=== PATIENT | female | born 1955 | race Caucasian/White ===

== ENCOUNTER → 2019-05-20 | Outpatient (CLI) | payer OTHER ==
--- NOTE | 2019-05-20 17:24 | CARDNUC ---
[place] [address] CARDIAC NUCLEAR IMAGING REPORT Name: ALPESH KO Room: [facility]#: [id number] Admission: 05/20/19 Attend Phys: Ana Palmer, Discharge: Date of : 57 Date of Service: 05/20/19 1723 Report #: [id number] THIS REPORT FOR: cc: Kristy Medina MD, Lin W. MD Liston, Michael J. MD [facility] ~ APPROVED REPORT Study performed: 05/20/2019 14:26:52 Exam: Nuclear Stress Test Indication: Chest pain, Dyspnea. Patient Location: Out-Patient Stress Tech: Flavia Dominguez Stress Nurse: Riley Carlisle Tech:DREW Walls Ht: 5 ft 4 in Wt: 110 lbs BSA: 1.52 m2 BMI: 18.87 Medical History Medical History: Angina, Carotid artery disease, Fatigue, HTN, Hyperlipidemia, Smoking, SOB, Nausea, Diaphoresis, Neuropathy, foot pain. Medications: ASA 81 Mg, Atorvastatin, Losartan. Allergies: No known drug allergies Cardiac Risk Factors: Age, Current Smoker (2 pkg./day), HTN, Hyperlipidemia, SOB. Previous Cardiac Procedures: None Pretest Chest Pain Characteristics: No chest pain Exercise History: Indeterminate Physical Disabilities: Neuropathy, foot pain. Meds Held (24 hrs): Losartan. Stress Test Details Stress Test: Pharmacologic stress testing performed using 0.4 mg of regadenoson per 5 mL given IV over 10 seconds. Reason for pharmacologic stress test: Neuropathy, foot pain.. HR Resting HR: 96 bpm Max Heart Rate (APMHR): 158 bpm Max HR Achieved: 136 bpm Target HR (85% APMHR): 134 bpm % of APMHR: 86 Recovery HR: 106 [place] [address] CARDIAC NUCLEAR IMAGING REPORT Name: ALPESH KO Room: [facility]#: [id number] Admission: 05/20/19 Attend Phys: Ana Palmer, Discharge: Date of : 57 Date of Service: 05/20/19 1723 Report #: [id number] Resting BP: 168/96 mmHg Max BP: 210/111 mmHg ECG Resting ECG: Sinus Rhythm, LVH with repolarization changes Stress ECG: Sinus tachycardia, LVH with repolarization changes ST Change: None Arrhythmia: None Recovery ECG: Sinus Rhythm, LVH with repolarization changes Recovery ST Change: None Recovery Arrhythmia: None Clinical Reason for Termination: Completed protocol Stress Symptoms: Nausea, Emesis, Flushed/warmth, Chest spasm per patient, Headache. Exercise duration: 00 min 00 sec Exercise capacity: 1.00 METs The patient had symptoms of nausea, vomiting, headache and diaphoresis felt to be due to medication affect. Nurse Comments A 63 year old female presented for a sitting Lexiscan r/t chest pain and CAZARES with occasional nausea. Test tolerated with N/V, headache, flushed/warmth, diaphoresis and a headache. Recovery required a dose of IV caffeine to help resolve symptoms, effective. Patient was escorted by staff to Nuclear Medicine for imaging via wheelchair. Patient was stable and stated she felt better at that time. Stress ECG Conclusion The baseline EKG shows sinus rhythm with left ventricular hypertrophy with repolarization abnormalities. EKGs obtained during and post walking Lexiscan show sinus rhythm and sinus tachycardia with persistent ST segment depression consistent with repolarization abnormality. There were no stress-induced arrhythmias. NM EXAM: Myocardial Perfusion REST/STRESS Imaging Protocol: Rest Tc-99m/Stress Tc-99m 1 day Resting Data Rest SPECT myocardial perfusion imaging was [place] [address] CARDIAC NUCLEAR IMAGING REPORT Name: ALPESH KO Room: [facility]#: [id number] Admission: 05/20/19 Attend Phys: Ana Palmer, Discharge: Date of : 57 Date of Service: 05/20/19 1723 Report #: [id number] position 30 minutes following the intravenous injection of 10.6 mCi of Tc-99m Sestamibi. Time of rest injection: 13:00 Date: 05/20/2019 The images were gated to evaluate regional wall motion and calculate left ventricular ejection fraction. Administration Route: IV Administration Site: Right Arm Pharmacologic Stress Pharmacologic stress test was performed by injecting Regadenoson 0.4 mg IV push followed by the intravenous injection of 34.1 mCi of Tc-99m Sestamibi. Time of stress injection: 14:30 Date: 05/20/2019 Administration Route: IV Administration Site: Right Arm Heart Rate at time of stress injection: 136 bpm. Gated Stress SPECT was performed 40 minutes after stress injection. The images were gated to evaluate regional wall motion and calculate left ventricular ejection fraction. Prone imaging was performed. Study Quality Study: Good Artifact: No artifact Study Data At rest, the left ventricular ejection fraction was 71%.. Post stress, the left ventricular ejection was 68%.. TID = 0.92. Perfusion Myocardial perfusion images show uniform uptake of the radioisotope throughout the myocardium at both rest and stress there were no defects to suggest infarct or ischemia. Wall Motion Normal left ventricular wall motion. Nuclear Conclusion ECG Findings: non-diagnostic Clinical Findings: non-diagnostic Nuclear Findings: negative for ischemia Exercise Capacity: not assessed Left Ventricular Function: normal Risk Study: [place] [address] CARDIAC NUCLEAR IMAGING REPORT Name: STEFANIALPESH Room: [facility]#: [id number] Admission: 05/20/19 Attend Phys: Ana Palmer, Discharge: Date of : 57 Date of Service: 05/20/19 1723 Report #: [id number] Perfusion images show no defect to suggest infarct or ischemia. Left ventricular systolic function appears normal on gated studies. This is a low risk study. <Conclusion> The baseline EKG shows sinus rhythm with left ventricular hypertrophy with repolarization abnormalities. EKGs obtained during and post walking Lexiscan show sinus rhythm and sinus tachycardia with persistent ST segment depression consistent with repolarization abnormality. There were no stress-induced arrhythmias. <ELECTRONICALLY SIGNED> By: Pedro Gray MD, FACC 05/20/19 [phone] Pedro Gray MD, FACC /INF
== END ==
LOC: M.NUC 05-01 08:27
DX: R07.89 Other chest pain (principal)

== ENCOUNTER 2019-09-26 16:10 | Emergency (ER) | payer OTHER | END 2019-09-26 19:56 | disposition left against medical advice (07) | LOC: M.ERS 16:10 | DX: J44.1 Chronic obstructive pulmonary disease with (acute) exacerbation (principal); R91.8 Other nonspecific abnormal finding of lung field; F17.210 Nicotine dependence, cigarettes, uncomplicated; Z20.828 Contact with and (suspected) exposure to other viral communicable diseases ==

== ENCOUNTER 2019-09-28 14:15 | Inpatient (IN) | payer OTHER ==
[~2019-09-28] VITALS: Ht 162.6 cm; Wt 51.9 kg
[~2019-09-28 14:15] MED LIST: ASA81BEC PO; AUGMENTIN 875-1 EACH PO; COZAAR 25 MG TA25 M1 PO; DRIZALMA SPRINK60 MG PO; FAMOTIDINE 40 M40 M1 PO; LEVO-T100 MCG PO; LIPITOR 20 MG T20 M1 PO; TOPROL XL50 MG PO
[2019-09-28 14:21] VITALS: BP 144/84
[2019-09-28 16:12] LABS: HEMATOCRIT 35.3 % (37.0-47.0); MCH 31.7 pg (26.0-34.0); MCHC 33.9 g/dL (28.0-37.0); MCV 93.6 fL (80.0-100.0); MPV 7.7 fl. (7.2-11.1); NUCLEATED RBCS 0 /100WBC; PLATELET COUNT* 399 thou/uL (150-400); RBC 3.77 mil/uL (4.20-5.00); RDW-CV 12.6 % (10.5-14.5); WBC 11.5 thou/uL (4.0-11.0)
[2019-09-28 16:23] LABS: CALCIUM 8.7 mg/dL (8.5-10.1); CREATININE 0.9 mg/dL (0.6-1.3); POTASSIUM 3.8 mmol/L (3.5-5.1)
[2019-09-28 16:33] LABS: ALBUMIN 2.7 g/dL (3.4-5.0); TOTAL BILIRUBIN 0.6 mg/dL (<0.1-1.0)
[2019-09-28 16:56] LABS: ABSOLUTE LYMPHOCYTES 0.6 thou/uL (0.8-5.3); ABSOLUTE MONOCYTES 0.2 thou/uL (0.0-1.2); ABSOLUTE NEUTROPHILS 10.7 thou/uL (1.6-8.1); ANISOCYTOSIS Occasional; PLATELET ESTIMATE ADEQUATE
--- NOTE | 2019-09-28 17:17 | EKG ---
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: [facility] : 1955 Requested By: Cam Krause Order Number: [id number] MD: Juice Vaz Measurements Intervals [place] Rate: 91 P: 70 OK: 102 QRS: 61 QRSD: 84 T: 43 QT: 340 QTc: 419 Interpretive Statements Sinus rhythm Short OK interval Probable left atrial enlargement Minimal ST depression, diffuse leads Compared to ECG 09/26/2019 16:16:57 No significant changes Electronically Signed On 09-28-2019 17:16:56 CDT by Juice Vaz [email or web address] <ELECTRONICALLY SIGNED> By: Juice Vaz MD, [facility] 09/28/19 1716 1551 1551 Juice Vaz MD, [facility] /EPI
[2019-09-28 18:54] VITALS: BP 126/71
[2019-09-28 19:30] VITALS: BP 114/76
[2019-09-29] VITALS: BP 123/74
[2019-09-29 04:00] VITALS: BP 143/82
[2019-09-29 08:00] VITALS: BP 133/78
[2019-09-29 12:14] VITALS: BP 126/70
[2019-09-29 15:45] VITALS: BP 121/65
[2019-09-29 20:00] VITALS: BP 142/88
--- NOTE | 2019-09-29 21:14 | CON ---
[address] [address] CONSULTATION Name: ALPESH KO Room: [address] ADM IN M.R.#: [id number] Admission: 09/28/19 Attend Phys: Luisa Orozco Discharge: Date of : 57 Report #: [id number] THIS REPORT FOR: //name// cc: Kristy Medina MD, Lin W. MD ~ THIS REPORT FOR: //name// CC: Kristy Jauregui DATE OF SERVICE: 09/29/2019 REQUESTING PHYSICIAN: Jaswant Jauregui MD INDICATION FOR CONSULTATION: Lung mass. HISTORY OF PRESENT ILLNESS: The patient is a 64-year-old female with past medical history is as mentioned below. The patient reports that she was only diagnosed with COPD a couple of weeks ago and was started on some inhalers. She does have an extensive history of smoking. The patient says that her shortness of breath worsened and therefore on the , she came to the Emergency Room. The patient did have a CT chest performed, which is as discussed below. I reviewed both the films as well as the reports. The patient was recommended admission. The patient, however, left AMA. The patient does have an active script for Augmentin, this may have been started in the Emergency Room on the . Upon going home, the patient continued to have shortness of breath. She also started having vomiting, which was new. She says that she brought up very acidic fluid including bile. This caused burning in her throat. The patient therefore came back to the Emergency Room yesterday. She does still have shortness of breath. She has a cough, has some white sputum. Initially, she had chest tightness as well. This has subsided. She had previously loose stools. These also appear to be subsiding. She had a low-grade elevation in temperature to 37.5 degrees Celsius. She denies any runny nose, chills, swelling of lower extremities or calf pain. The patient answered to the negative for 12 other questions for review of systems. PAST MEDICAL HISTORY: Recent diagnosis of COPD just 2 weeks ago, hemorrhoidectomy, hyperlipidemia, depression, possible history of hypertension, hypothyroidism. The patient does take famotidine at home, the reason why she takes Imodium is not known to me. SOCIAL HISTORY: Extensive history of smoking of half to 1 pack a day for several decades. She was still smoking. Also, has a regular use of alcohol and at times is reported to have had several glasses of wine on [place] [address] CONSULTATION Name: ALPESH KO Room: [address] IN [facility].#: [id number] Admission: 09/28/19 Attend Phys: Luisa Orozco Discharge: Date of : 57 Report #: [id number] unable to quantify exactly her alcohol intake. No known history of illegal drug use. ALLERGIES: No known drug allergies. FAMILY HISTORY: There is no pertinent family history. CURRENT MEDICATIONS: List in Method reviewed. HOME MEDICATIONS: List also in Method reviewed. PHYSICAL EXAMINATION: GENERAL: She is alert, awake and oriented, does not appear to be in any distress at this time. VITAL SIGNS: Pulse of 94 and a blood pressure of 121/65. She is saturating 98%. She is not on supplemental oxygen. Her respiratory rate is 18. She is afebrile today with a temperature of 36.7. She did have a fever up to 37.5, low-grade yesterday, which was axillary. HEENT: Head is normocephalic and atraumatic. Pupils are equal and reactive. There is mild throat erythema. NECK: Does not show raised JVP, asymmetry, mass or lymph nodes. CHEST: Symmetrical expansion on inspection and palpation. On auscultation, breath sounds are bilaterally equal, but decreased. Expirations are prolonged. I do not hear any added sounds. HEART: Regular. There is no murmur. ABDOMEN: Soft and nontender. EXTREMITIES: Lower extremities show no edema and no calf tenderness. SKIN: Dry and intact. NEUROLOGICAL: Moves all extremities bilaterally equally and spontaneously. There is no focal deficit identified. LABORATORY DATA: The patient's CT chest is reviewed and is as discussed below. I had reviewed the CT with the oncologist. This was also compared with the patient's chest x-ray. See further discussion regarding the CT findings as below, note that this is a noncontrast CT. The patient's CBC as well as chemistries which do show a sodium decreased to 129, in [employer] reviewed. ASSESSMENT AND PLAN: 1. 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 CT Chest is consistent with a mass in the right hilum/right upper lobe bronchus. While there are multiple possible etiologies, this is most consistent with small cell carcinoma of lung. Note that the patient's sodium level is also decreased to 129, which will also be consistent with this. I, at this time, recommend proceeding to a thoracentesis. If a definite diagnosis could be made for small cell carcinoma of lung based on the thoracentesis, then the patient may in fact [place] [address] CONSULTATION Name: ALPESH KO Room: [address] IN [facility].#: [id number] Admission: 09/28/19 Attend Phys: Luisa Orozco Discharge: Date of : 57 Report #: [id number] reach a definite diagnosis. In case the cytology result from thoracentesis is other than definite for small cell carcinoma of lung, the patient would require further investigation. In that case, the patient may benefit from a bronchoscopy possibly with an endobronchial biopsy. If the patient's clinical condition does improve over the next couple of days, then I may in fact consider obtaining a PET scan before considering proceedings of bronchoscopy subsequently, if thoracentesis is not definitive. 2. Chronic obstructive pulmonary disease exacerbation. I feel that she does have a component of bronchospasm and she does appear to be an exacerbation. Therefore, I went ahead and ordered Solu-Medrol. The patient already is on nebulized bronchodilators. Smoking cessation is strongly recommended. 3. Right upper lobe postobstructive pneumonia. The patient is on Augmentin. I feel that this is reasonable therapy and provides adequate spectrum to cover the suspected organisms. I temporarily switched this over to Unasyn due to greater efficacy with the plan to switch her back to Augmentin later. 4. Vomiting. This is already subsided. The patient is on Pepcid. She takes Pepcid at home long-term. If her symptoms return, I would recommend having a low threshold of starting a proton pump inhibitor. 5. Smoker. Smoking cessation is strongly recommended. 6. Alcohol intake, unable to quantify exactly. I recommend watching closely while she is in the hospital. 7. Evaluation of cardiac function. We will do a 2D echo. 8. Evaluation for oxygen needs. We will plan to do a nocturnal pulse oximetry prior to her discharge. Thanks for this consultation. <ELECTRONICALLY SIGNED> By: Mednoza Henriquez MD 09/29/19 2114 1636 [id number] Henriquez MD /nt
[2019-09-30] VITALS (7 sets, daily range): BP systolic 117–145; BP diastolic 57–90
[2019-09-30 04:48] LABS: ABSOLUTE LYMPHOCYTES 0.9 thou/uL (0.8-5.3); ABSOLUTE MONOCYTES 0.8 thou/uL (0.0-1.2); ABSOLUTE NEUTROPHILS 8.2 thou/uL (1.6-8.1); BASOPHILS 0.5 %; EOSINOPHILS 0.1 %; HEMATOCRIT 31.5 % (37.0-47.0); HEMOGLOBIN 10.8 gm/dL (12.0-15.0); LYMPHOCYTES 8.8 %; MCH 32.1 pg (26.0-34.0); MCHC 34.3 g/dL (28.0-37.0); MCV 93.6 fL (80.0-100.0); MPV 7.1 fl. (7.2-11.1); NUCLEATED RBCS 0 /100WBC; PLATELET COUNT* 402 thou/uL (150-400); POLYS 82.6 %; RBC 3.36 mil/uL (4.20-5.00); RDW-CV 12.4 % (10.5-14.5); WBC 9.9 thou/uL (4.0-11.0)
[2019-09-30 05:18] LABS: APTT 24.7 Seconds (25.0-31.3); PROTIME 10.7 Seconds (9.20-11.50)
[2019-09-30 08:08] LABS: ALBUMIN 2.4 g/dL (3.4-5.0); CALCIUM 8.1 mg/dL (8.5-10.1); CREATININE 0.7 mg/dL (0.6-1.3); MAGNESIUM 1.4 mg/dL (1.8-2.4); POTASSIUM 4.4 mmol/L (3.5-5.1); TOTAL BILIRUBIN 0.2 mg/dL (<0.1-1.0); TOTAL PROTEIN 5.6 g/dL (6.4-8.2)
[2019-09-30 12:50] LABS: BF LYMPHOCYTES 74 %; BF POLYS 26 %
[2019-09-30 12:51] LABS: BF TISSUE 8 /100 WBC; CLARITY CLOUDY; SOURCE THORACENTESIS; TOTAL VOLUME 850 ml
[2019-09-30 12:52] LABS: BF MONOCYTES 0 %; BF RBC 9526 /mm3; TOTAL CELL COUNT 3033 /mm3
[2019-09-30] MEDS ORDERED: ADVAIR 250-501 EACH INH (13:10)
[2019-09-30] MEDS ORDERED: NORCO 10-325 T1 EACH PO (13:10)
[2019-09-30] MEDS ORDERED: PREDNISONE 10 M10 MG PO (13:10)
[2019-09-30] MEDS ORDERED: SPIRIVA RESPIMAT4 G1 INH (13:10)
--- NOTE | 2019-09-30 13:56 | 2DMMODE ---
[place] [address] 2 D/M-MODE ECHOCARDIOGRAM Name: ALPESH KO Room: [address] ADM IN [facility]#: [id number] Admission: 09/28/19 Attend Phys: Jaswnat Jauregui Discharge: Date of : 57 Date of Service: 09/30/19 1356 Report #: [id number] THIS REPORT FOR: cc: Kristy Medina MD, Lin W. MD Holkins, John M. MD [facility] ~ APPROVED REPORT Study performed: 09/30/2019 10:33:34 EXAM: Comprehensive 2D, Doppler, and color-flow Echocardiogram Patient Location: In-Patient Room #: [facility] Status: routine BSA: 1.53 HR: 84 bpm BP: 130/85 mmHg Rhythm: NSR Other Information Study Quality: Good Indications Dyspnea 2D Dimensions IVSd: 9.15 (7-11mm) LVOT Diam: 19.07 (18-24mm) LVDd: 45.97 mm PWd: 9.43 (7-11mm) Ascending Ao: 28.23 (22-36mm) LVDs: 26.90 (25-40mm) Aortic Root: 30.68 mm Volumes Left Atrial Volume (Systole) LA ESV Index: 24.20 mL/m2 Aortic Valve AoV Peak Gurjit.: 1.22 m/s AO Peak Gr.: 5.98 mmHg LVOT Max P.61 mmHg AO Mean Gr.: 3.02 mmHg LVOT Mean P.77 mmHg LVOT Max V: 0.95 m/s AO V2 VTI: 22.82 cm LVOT Mean V: 0.61 m/s FELIPE (VTI): 2.53 cm2 LVOT V1 VTI: 20.19 [place] [address] 2 D/M-MODE ECHOCARDIOGRAM Name: ALPESH KO Room: [address] IN M.R.#: [id number] Admission: 09/28/19 Attend Phys: Jaswant Jauregui Discharge: Date of : 57 Date of Service: 09/30/19 1356 Report #: [id number] Mitral Valve E/A Ratio: 1.46 MV Decel. Time: 145.04 ms MV E Max Gurjit.: 1.01 m/s MV PHT: 42.06 ms MVA (PHT): 5.23 cm2 TDI E/Lateral E': 6.31 E/Medial E': 10.10 Medial E' Gurjit.: 0.10 m/s Lateral E' Gurjit.: 0.16 m/s Pulmonary Valve PV Peak Gurjit.: 1.02 m/s PV Peak Gr.: 4.19 mmHg Tricuspid Valve RAP Estimate: 5.00 mmHg TR Peak Gr.: 36.06 mmHg RVSP: 41.00 mmHg PA Pressure: 41.00 mmHg Left Ventricle The left ventricle is normal size. There is normal LV segmental wall motion. There is normal left ventricular wall thickness. Left ventricular systolic function is normal. The left ventricular ejection fraction is within the normal range. LVEF is 60-65%. Right Ventricle The right ventricle is normal size. The right ventricular systolic function is normal. Atria The left atrium size is normal. The right atrium size is normal. Aortic Valve Mild aortic valve sclerosis. No aortic regurgitation is present. There is no aortic valvular stenosis. Mitral Valve The mitral valve is normal in structure. There is no mitral valve regurgitation noted. No evidence of mitral valve stenosis. Tricuspid Valve The tricuspid valve is normal in structure. Mild to [place] [address] 2 D/M-MODE ECHOCARDIOGRAM Name: ALPESH KO Room: [address] IN [facility]#: [id number] Admission: 09/28/19 Attend Phys: Jaswant Jauregui Discharge: Date of : 57 Date of Service: 09/30/19 1356 Report #: [id number] Pulmonic Valve The pulmonary valve is normal in structure. Trace pulmonic regurgitation. Great Vessels The aortic root is normal in size. IVC is normal in size and collapses >50% with inspiration. Pericardium There is no pericardial effusion. <Conclusion> The left ventricle is normal size. There is normal left ventricular wall thickness. Left ventricular systolic function is normal. The left ventricular ejection fraction is within the normal range. LVEF is 60-65%. The right ventricle is normal size. The left atrium size is normal. Mild aortic valve sclerosis. No aortic regurgitation is present. There is no aortic valvular stenosis. The mitral valve is normal in structure. The tricuspid valve is normal in structure. IVC is normal in size and collapses >50% with inspiration. There is no pericardial effusion. There is normal LV segmental wall motion. <ELECTRONICALLY SIGNED> By: Naresh Potts MD, FACC 09/30/19 1356 1356 1356 Naresh Potts MD, FACC /INF
[2019-10-01 09:08] LABS: BODY FLUID LDH 269 IU/L (()); BODY FLUID PROTEIN 2.6 g/dL (())
[2019-10-01 10:46] LABS: SOURCE THORACENTESIS
--- NOTE | 2019-10-02 17:06 | PATH ---
[address] [address] PATHOLOGY RPT PROCEDURE Name: ALPESH KO Room: [address] IN M.R.#: [id number] Admission: 09/28/19 Date of : 57 Discharge: 09/30/19 Report #: [id number] Path Case #: [id number] Note [facility] Accession Number: [id number] TESTS RESULT FLAG UNITS REF RANGE LAB Clinician Provided Cytology Information No. of containers..01 Other (Miscellaneous) Source: 01 PLEURAL FL DIAGNOSIS: 02 PLEURAL FLUID (SIDE NOT SPECIFIED) INCONCLUSIVE. RARE ATYPICAL CELLS IN BACKGROUND OF ABUNDANT REACTIVE MESOTHELIAL CELLS, AND FEW RBCS AND INFLAMMATORY CELLS. SEE COMMENT. THIS INTERPRETATION INCLUDES EVALUATION OF A CELL BLOCK. COMMENT Rare atypical cells seen singly and in small groups are present which are favored as reactive mesothelial cells, however, neoplasia cannot be entirely excluded. 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; 10/02/2019) Signed out by: 02 Tomasz Novak MD, Pathologist NPI- [id number] Performed by: Shahid Palomares, Retail Team Leader ([facility]) Gross description: 01 40ML, CLOUDY BROWN, 1TP 1CB /LCS 10/02/2019 1030 Local FLAG LEGEND: L-Low Normal,H-High Normal,LL-Alert Low,HH-Alert High <-Panic Low,>-Panic High,A-Abnormal,AA-Critical Abnormal Performed at: [address] [place] [address] Maldonado Frank MD, [address] [place] [id number] Tomasz Novak MD, Specimen Comment: A courtesy copy of this report has been sent to [phone] Specimen Comment: [id number] Specimen Comment: Report sent to / DR CRAFT Specimen Comment: A duplicate report has been generated due to demographic updates. Performed at: 01 [facility] [address] [place] [address] PATHOLOGY RPT PROCEDURE Name: ALPESH KO Room: [address] IN [facility]#: [id number] Admission: 09/28/19 Date of : 57 Discharge: 09/30/19 Report #: [id number] Path Case #: [id number] [facility] [address] [facility] [facility] [address], [place], [place] [id number] MD Maldonado Frank MD Phone: [phone]
== END 2019-09-30 17:04 | disposition home or self-care (01) | DRG 180 ==
LOC: M.ERS 14:15 → M.2W 17:31 → M.TBA-ER 17:31 → M.2W 19:01
PROVIDERS: Emergency Medicine Emergency Medical Services; Internal Medicine Critical Care Medicine; Internal Medicine Hematology & Oncology; ADMIT Internal Medicine; ATTEND Internal Medicine
PROC: 0W993ZZ Drainage of Right Pleural Cavity, Percutaneous Approach (ICD-10-PCS; principal; 2019-09-30)
DX: C34.90 Malignant neoplasm of unspecified part of unspecified bronchus or lung (principal); J18.1 Lobar pneumonia, unspecified organism; J44.1 Chronic obstructive pulmonary disease with (acute) exacerbation; E44.0 Moderate protein-calorie malnutrition; J44.0 Chronic obstructive pulmonary disease with (acute) lower respiratory infection; J91.0 Malignant pleural effusion; Z68.1 Body mass index [BMI] 19.9 or less, adult; E78.5 Hyperlipidemia, unspecified; F32.9 Major depressive disorder, single episode, unspecified; E03.9 Hypothyroidism, unspecified; F17.210 Nicotine dependence, cigarettes, uncomplicated; I48.91 Unspecified atrial fibrillation; I10 Essential (primary) hypertension; K21.9 Gastro-esophageal reflux disease without esophagitis; R13.10 Dysphagia, unspecified; Z20.828 Contact with and (suspected) exposure to other viral communicable diseases; Z71.6 Tobacco abuse counseling; Z82.49 Family history of ischemic heart disease and other diseases of the circulatory system; Z79.899 Other long term (current) drug therapy; Z79.82 Long term (current) use of aspirin

== ENCOUNTER → 2019-10-26 | Outpatient (CLI) | payer OTHER ==
[~2019-10-26] MED LIST changes: +ADVAIR 250-501 EACH INH; +NORCO 10-325 T1 EACH PO; +PREDNISONE 10 M10 MG PO; +SPIRIVA RESPIMAT4 G1 INH
== END ==
LOC: M.ULTRA 15:29
PROVIDERS: ATTEND Internal Medicine Critical Care Medicine
DX: I87.2 Venous insufficiency (chronic) (peripheral) (principal)

== ENCOUNTER 2019-11-08 17:19 | Inpatient (IN) | payer OTHER ==
[~2019-11-08] VITALS: Ht 162.6 cm; Wt 51.2 kg
--- NOTE | ~2019-11-08 | CON ---
[address] [address] CONSULTATION Name: ALPESH KO Room: [address] IN M.R.#: [id number] Admission: 11/08/19 Attend Phys: Char Avila MD Discharge: Date of : 57 Report #: [id number] THIS REPORT FOR: //name// cc: Kristy Medina MD, Lin W. MD ~ THIS REPORT FOR: //name// CC: Char Medina DATE OF SERVICE: 11/09/2019 NEPHROLOGY CONSULTATION CONSULTING PHYSICIAN: Char Avila MD. REASON FOR NEPHROLOGY CONSULTATION: Hyponatremia. REASON FOR ADMISSION: Fever associated with chemotherapy. HISTORY OF PRESENT ILLNESS: This is a 64-year-old female with past medical history of lung cancer, currently on chemo and radiation, was sent over by her oncologist to the hospital, because she was spiking fever as high as 102.4. Her chest x-ray showed right apical mass as well as consolidation and she was also hypotensive with blood pressure in 90s when she came in. She was given IV fluids. Her sodium was 120 yesterday evening around 5:30, it went up to 133 this morning with normal saline. She feels much better this morning. She is on neutropenic precautions as well. She does take a diuretic at home along with some potassium and she does take losartan at home. Her kidney function is normal, creatinine is 0.8. She does not take any NSAIDs at home. For the last few days, she has not been able to eat much because she is not being able to swallow. REVIEW OF SYSTEMS: As mentioned in history of present illness weakness. Otherwise, 10-point review of systems done, negative. ALLERGIES: No known allergies. FAMILY HISTORY: Reviewed and noncontributory, in this case lung cancer and heart disease. PAST MEDICAL AND SURGICAL HISTORY: Includes COPD, hemorrhoidectomy, mass in right chest and lung cancer and a last chemo was 10/24/2019, history of hypertension. HOME MEDICATIONS: Include fluticasone, tiotropium, prednisone, [place] [address] CONSULTATION Name: ALPESH KO Room: [address] IN [facility]#: [id number] Admission: 11/08/19 Attend Phys: Char Avila MD Discharge: Date of : 57 Report #: [id number] aspirin, atorvastatin, levothyroxine, duloxetine, losartan, metoprolol, omeprazole, doxycycline, albuterol and a diuretic. She did not know the name of the dose. Potassium chloride 20 mEq daily. SOCIAL HISTORY: She is a former smoker and she drinks about 2 glasses of wine a day and no other recreational drug use reported. PHYSICAL EXAMINATION: VITAL SIGNS: Blood pressure is 107/65, temperature 36.9, pulse rate is 91, respiratory rate is 16 and her pulse ox was 94% and she was on 2 liters of oxygen by nasal cannula. GENERAL: She was awake, alert, oriented x 3. HEAD AND EYES: Atraumatic, normocephalic. Normal conjunctivae. EARS, NOSE, AND THROAT: Normal ears and nose. Mucous membranes are moist. NECK: No JVD. CHEST: Bilaterally diminished breath sounds and coarse breath sounds posteriorly. CARDIOVASCULAR: S1, S2 normal. No murmurs. ABDOMEN: Soft, nondistended, nontender. Bowel sounds are present. EXTREMITIES: Lower extremities, there is no lower extremity edema. NEUROLOGICAL FUNCTION: Grossly intact. PSYCHIATRIC: Mood and affect seem to be normal. LABORATORY DATA: WBC was 0.4, hemoglobin was 8.7, platelet count was 62. Sodium was 131 this morning. Creatinine was 0.8 and sodium was 120 yesterday evening. Other labs were reviewed. Urine sodium was 7. IMAGING: Chest x-ray was reviewed. ASSESSMENT: 1. Acute hyponatremia in the setting of poor oral intake, hypovolemia. Urine sodium 7 indicating towards the same. Urine osmolarity is pending and sodium was 120 on presentation, corrected too fast to 133 this morning and less than 24-hour time span. 2. History of lung cancer, on chemo and radiation therapy, admitted with fever and this is neutropenic fever. Primary team is working on that. 3. Hypotension with history of hypertension. 4. Inability to swallow well. 5. History of chronic obstructive pulmonary disease, primary team is managing that. PLAN: 1. Sodium corrected too fast with normal saline. Normal saline has been stopped this morning, we will give her D5 water bolus and sodium to be checked at 12:00 p.m., nursing has been asked to call me if sodium is greater than 128 at that point. Goal sodium correction should not be more than 6-8 mEq in [address] [address] CONSULTATION Name: ALPESH KO Room: [address] IN M.R.#: [id number] Admission: 11/08/19 Attend Phys: Char Avila MD Discharge: Date of : 57 Report #: [id number] 24-hour time span to prevent osmotic demyelination. Please monitor her urinary retention. 2. I have held her losartan right now because her blood pressure has been running towards the lower side. 3. Avoid reinitiating her diuretics right now. Thank you for this consultation. Discussed with the patient. We will continue to follow with you. Discussed with nursing. By: [id number] Perez MD /cammy
[2019-11-08 17:29] VITALS: BP 93/51
[2019-11-08 17:33] LABS: URINE BLOOD NEGATIVE (Negative); URINE CLARITY CLEAR; URINE COLOR YELLOW; URINE GLUCOSE-RANDOM NEGATIVE (Negative); URINE KETONES TRACE (Negative); URINE LEUKOCYTES-REFLEX NEGATIVE (Negative); URINE NITRITE-REFLEX NEGATIVE (Negative); URINE PROTEIN TRACE (Negative); URINE SPECIFIC GRAVITY 1.015 (1.005-1.030); URINE UROBILINOGEN 0.2 E.U./dl (0.2-1.0)
[2019-11-08 17:35] LABS: URINE BILIRUBIN 1+ (Negative)
[2019-11-08 17:37] LABS: ICTOTEST (BILI CONFIRMATORY) Positive (Negative)
[2019-11-08 17:44] LABS: HEMOGLOBIN 8.8 gm/dL (12.0-15.0); MPV 7.3 fl. (7.2-11.1)
[2019-11-08 17:46] LABS: HEMATOCRIT 25.3 % (37.0-47.0); MCH 31.3 pg (26.0-34.0); MCHC 34.8 g/dL (28.0-37.0); MCV 89.8 fL (80.0-100.0); NUCLEATED RBCS 1 /100WBC; PLATELET COUNT* 65 thou/uL (150-400); RBC 2.82 mil/uL (4.20-5.00); RDW-CV 14.1 % (10.5-14.5)
[2019-11-08 17:54] LABS: INR 1.1; PROTIME 11.2 Seconds (9.20-11.50)
[2019-11-08 18:05] LABS: CALCIUM 8.6 mg/dL (8.5-10.1); CREATININE 1.1 mg/dL (0.6-1.3); POTASSIUM 4.3 mmol/L (3.5-5.1)
[2019-11-08 18:11] LABS: ALBUMIN 2.6 g/dL (3.4-5.0); TOTAL BILIRUBIN 0.5 mg/dL (<0.1-1.0); TOTAL PROTEIN 6.4 g/dL (6.4-8.2)
[2019-11-08 18:43] LABS: ABSOLUTE MONOCYTES 0.2 thou/uL (0.0-1.2); ABSOLUTE NEUTROPHILS 0.1 thou/uL (1.6-8.1); WBC 0.3 thou/uL (4.0-11.0)
[2019-11-08 18:44] LABS: PLATELET ESTIMATE DECREASED; POLYCHROMASIA Occasional
[2019-11-08 19:27] VITALS: BP 97/51
[2019-11-08] MEDS ORDERED: OMEPRAZOLE 20 M20 M1 PO (21:25)
[2019-11-08] MEDS ORDERED: DOXYCYCLINE HYC20 MG PO (21:25)
[2019-11-08] MEDS ORDERED: ALBUTEROL2.5 MG/0.1 INH (21:27)
[2019-11-09] VITALS: BP 103/54
[2019-11-09 04:02] VITALS: BP 108/61
[2019-11-09 04:46] LABS: HEMATOCRIT 25.4 % (37.0-47.0); HEMOGLOBIN 8.7 gm/dL (12.0-15.0); MCH 30.9 pg (26.0-34.0); MCHC 34.2 g/dL (28.0-37.0); MCV 90.4 fL (80.0-100.0); MPV 7.2 fl. (7.2-11.1); RBC 2.82 mil/uL (4.20-5.00); RDW-CV 14.1 % (10.5-14.5)
[2019-11-09 04:58] LABS: ALBUMIN 2.1 g/dL (3.4-5.0); CALCIUM 7.9 mg/dL (8.5-10.1); CREATININE 0.8 mg/dL (0.6-1.3); MAGNESIUM 1.4 mg/dL (1.8-2.4); POTASSIUM 4.1 mmol/L (3.5-5.1); TOTAL BILIRUBIN 0.2 mg/dL (<0.1-1.0); TOTAL PROTEIN 5.8 g/dL (6.4-8.2)
[2019-11-09 05:02] LABS: WBC 0.4 thou/uL (4.0-11.0)
[2019-11-09] MEDS ORDERED: KLOR-CON M2020 MEQ PO (06:50)
[2019-11-09] MEDS ORDERED: DIURETIC (06:51)
[2019-11-09 08:00] VITALS: BP 107/65; BP 85/71
--- NOTE | 2019-11-09 09:57 | EKG ---
[place] [address] ELECTROCARDIOGRAM REPORT Name: ALPESH KO Room: [address] ADM IN ..#: [id number] Admission: 11/08/19 Attend Phys: Char Avila, Discharge: Date of : 57 Date of Service: 11/08/19 1748 Report #: [id number] THIS REPORT FOR: //name// [facility] ED Test Date: 2019-11-08 Test Time: 17:48:10 Pat Name: ALPESH KO Department: Room: 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 : 1955 Requested By: Baltazar Horton Order Number: [id number] MD: Naresh Potts Measurements Intervals [employer] Rate: 122 P: 80 MS: 98 QRS: 72 QRSD: 73 T: -89 QT: 287 QTc: 409 Interpretive Statements Sinus tachycardia Borderline repolarization abnormality Compared to ECG 09/28/2019 15:51:14 Sinus rate has increased Short MS interval persists ST (T wave) deviation no longer present Electronically Signed On 11-09-2019 9:57:37 CDT by Naresh Potts [email or web address] <ELECTRONICALLY SIGNED> By: Naresh Potts MD, [facility] 11/09/19 0957 1748 1748 Naresh Potts MD, [facility] /EPI
[2019-11-09 12:02] VITALS: BP 97/55
[2019-11-09 16:40] VITALS: BP 109/60
[2019-11-09 20:00] VITALS: BP 114/66
[2019-11-10] VITALS (7 sets, daily range): BP systolic 106–126; BP diastolic 51–69
[2019-11-10 05:40] LABS: ABSOLUTE LYMPHOCYTES 0.1 thou/uL (0.8-5.3); ABSOLUTE NEUTROPHILS 0.5 thou/uL (1.6-8.1); BASOPHILS 0.1 %; HEMATOCRIT 23.1 % (37.0-47.0); HEMOGLOBIN 8.2 gm/dL (12.0-15.0); LYMPHOCYTES 11.6 %; MCH 31.9 pg (26.0-34.0); MCHC 35.4 g/dL (28.0-37.0); MCV 90.1 fL (80.0-100.0); MONOCYTES 35.3 %; MPV 7.5 fl. (7.2-11.1); NUCLEATED RBCS 0 /100WBC; PLATELET COUNT* 75 thou/uL (150-400); RBC 2.56 mil/uL (4.20-5.00); RDW-CV 14.1 % (10.5-14.5)
[2019-11-10 05:49] LABS: ABSOLUTE MONOCYTES 0.4 thou/uL (0.0-1.2)
[2019-11-10 05:56] LABS: CALCIUM 7.9 mg/dL (8.5-10.1); CREATININE 0.8 mg/dL (0.6-1.3); POTASSIUM 4.1 mmol/L (3.5-5.1)
[2019-11-11 04:00] VITALS: BP 106/53
[2019-11-11 04:52] LABS: HEMATOCRIT 23.2 % (37.0-47.0); MCH 31.2 pg (26.0-34.0); MCHC 34.7 g/dL (28.0-37.0); MPV 7.5 fl. (7.2-11.1); NUCLEATED RBCS 0 /100WBC; PLATELET COUNT* 82 thou/uL (150-400); RBC 2.58 mil/uL (4.20-5.00); RDW-CV 14.3 % (10.5-14.5)
[2019-11-11 04:56] LABS: CALCIUM 8.8 mg/dL (8.5-10.1); CREATININE 0.8 mg/dL (0.6-1.3); POTASSIUM 4.2 mmol/L (3.5-5.1)
[2019-11-11 04:59] LABS: WBC 5.1 thou/uL (4.0-11.0)
[2019-11-11 05:53] LABS: ABSOLUTE LYMPHOCYTES 0.4 thou/uL (0.8-5.3); ABSOLUTE MONOCYTES 0.3 thou/uL (0.0-1.2); ABSOLUTE NEUTROPHILS 4.4 thou/uL (1.6-8.1); ANISOCYTOSIS 1+; PLATELET ESTIMATE DECREASED; POIKILOCYTOSIS 1+
[2019-11-11 08:00] VITALS: BP 126/72
[2019-11-11] MEDS ORDERED: NEURONTIN 300M300 M2 PO (09:55)
[2019-11-11] MEDS ORDERED: LEVAQUIN 500 M500 M1 PO (09:55)
[2019-11-11] MEDS ORDERED: OMEPRAZOLE 20 M20 M1 PO (09:55)
[2019-11-11] MEDS ORDERED: SM SORE THROAT PO (09:55)
[2019-11-11] MEDS ORDERED: LORAZEPAM 0.50.5 MG PO (09:55)
[2019-11-11] MEDS ORDERED: CYMBALTA30 MG PO (09:55)
[2019-11-11] MEDS ORDERED: PREDNISONE 10 M10 MG PO (09:55)
[2019-11-11] MEDS ORDERED: MAGIC MOUTHWASH BLM SW&SWALLOW (11:20)
[2019-11-11] MEDS ORDERED: NORCO 10-325 T1 EACH PO (11:20)
[2019-11-11 11:55] VITALS: BP 126/72
== END 2019-11-11 12:58 | disposition home or self-care (01) | DRG 871 ==
LOC: M.ERS 17:19 → M.2W 18:26 → M.TBA-ER 18:26 → M.ERS 19:29 → M.2W 20:03
PROVIDERS: Family Medicine; Internal Medicine; ADMIT Internal Medicine; ATTEND Internal Medicine
DX: A41.9 Sepsis, unspecified organism (principal); D61.810 Antineoplastic chemotherapy induced pancytopenia; J18.9 Pneumonia, unspecified organism; E87.1 Hypo-osmolality and hyponatremia; J44.1 Chronic obstructive pulmonary disease with (acute) exacerbation; J44.0 Chronic obstructive pulmonary disease with (acute) lower respiratory infection; C34.90 Malignant neoplasm of unspecified part of unspecified bronchus or lung; I48.91 Unspecified atrial fibrillation; Z20.828 Contact with and (suspected) exposure to other viral communicable diseases; E86.1 Hypovolemia; T45.1X5A Adverse effect of antineoplastic and immunosuppressive drugs, initial encounter; I10 Essential (primary) hypertension; Z87.891 Personal history of nicotine dependence; Z79.82 Long term (current) use of aspirin; Y92.89 Other specified places as the place of occurrence of the external cause

== ENCOUNTER 2019-11-29 01:29 | Inpatient (IN) | payer OTHER ==
[~2019-11-29] VITALS: Ht 162.6 cm; Wt 54.2 kg
--- NOTE | ~2019-11-29 | CON ---
[address] [address] CONSULTATION Name: ALPESH KO Room: [address] IN M.R.#: [id number] Admission: 11/29/19 Attend Phys: Jose Alvares MD Discharge: Date of : 57 Report #: [id number] THIS REPORT FOR: //name// cc: Kristy Medina MD, Lin W. MD ~ THIS REPORT FOR: //name// CC: Jose Medina DATE OF SERVICE: 11/29/2019 REASON FOR CONSULTATION: Febrile neutropenia, small cell lung cancer. REQUESTING PHYSICIAN: Jose Alvares MD. HISTORY OF PRESENT ILLNESS: The patient is a pleasant 64-year-old woman who is well known to my partner, Dr. Li. I am consulted for febrile neutropenia. The patient is undergoing chemotherapy and radiation for small cell lung cancer. 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 Day after chemotherapy, she had low-grade fever. She was advised to take Tylenol. She continues to take Tylenol over the period of last week. Yesterday, she had high fever more than 101 and she presented to Emergency Room. She was found to have neutropenia. The patient is admitted to the hospital. This morning, she is feeling better. She does not have complaints of cough. Does not have dysuria. Denies diarrhea. She has hoarseness and swallowing difficulty secondary to radiation. PAST MEDICAL HISTORY: Significant for small cell lung cancer, COPD, atrial fibrillation. SOCIAL HISTORY: Currently, does not smoke, former smoker, does not drink alcohol excessively. FAMILY HISTORY: Noncontributory. REVIEW OF SYSTEMS: GENERAL: Positive for weight loss. Denies headaches. HEENT: See above. CARDIOVASCULAR: No chest pain or palpitations. RESPIRATORY: See above. GASTROINTESTINAL: See above. GENITOURINARY: Negative. SKIN: Does not have any rash. NEUROLOGIC: [place] [address] CONSULTATION Name: ALPESH KO Room: [address]#: [id number] Admission: 11/29/19 Attend Phys: Jose Alvares MD Discharge: Date of : 57 Report #: [id number] PHYSICAL EXAMINATION: VITAL SIGNS: Temperature 99.0 on admission, was 101.8. Blood pressure 105/60, heart rate is 17. HEENT: No thrush. NECK: Supple. HEART: Normal S1, S2. LUNGS: Clear. ABDOMEN: Soft. EXTREMITIES: No edema. MENTAL STATUS: Alert and oriented x 3. LYMPHATICS: No supraclavicular lymphadenopathy. LABORATORY DATA: White count 0.6, hemoglobin 5.9, platelets 84. Sodium 133, potassium 3.5, BUN 17 and creatinine 0.9. Chest x-ray reviewed, does not show any new infiltrates, shows some improvement of postoperative pneumonitis in right upper lobe. Blood cultures pending. ASSESSMENT AND PLAN: 1. Febrile neutropenia. I recommended Neupogen 300 mcg daily. 2. Anemia, blood product transfusion. 3. Thrombocytopenia secondary to chemotherapy, mild. Continue to monitor. 4. Small cell lung cancer. The patient will resume chemotherapy when she is discharged from the hospital. Thank you very much for allowing me to participate in care of this patient. We will follow the patient with you. By: [id number] Andrews MD /nt
[~2019-11-29 01:29] MED LIST changes: +ALBUTEROL2.5 MG/0.1 INH; +CYMBALTA30 MG PO; +DIURETIC; +DOXYCYCLINE HYC20 MG PO; +KLOR-CON M2020 MEQ PO; +LEVAQUIN 500 M500 M1 PO; +LORAZEPAM 0.50.5 MG PO; +MAGIC MOUTHWASH BLM SW&SWALLOW; +NEURONTIN 300M300 M2 PO; +OMEPRAZOLE 20 M20 M1 PO; +SM SORE THROAT PO
[2019-11-29 02:03] VITALS: BP 93/51
[2019-11-29 02:47] LABS: MCH 31.6 pg (26.0-34.0); MCHC 34.6 g/dL (28.0-37.0); MCV 91.3 fL (80.0-100.0); MPV 7.2 fl. (7.2-11.1); NUCLEATED RBCS 0 /100WBC; PLATELET COUNT* 84 thou/uL (150-400); RBC 1.87 mil/uL (4.20-5.00)
[2019-11-29 02:48] LABS: WBC 0.6 thou/uL (4.0-11.0)
[2019-11-29 02:49] LABS: HEMOGLOBIN 5.9 gm/dL (12.0-15.0)
[2019-11-29 02:54] LABS: CALCIUM 8.3 mg/dL (8.5-10.1); CREATININE 0.9 mg/dL (0.6-1.3); POTASSIUM 3.5 mmol/L (3.5-5.1)
[2019-11-29 02:58] LABS: ALBUMIN 2.5 g/dL (3.4-5.0); MAGNESIUM 1.3 mg/dL (1.8-2.4); TOTAL BILIRUBIN 0.2 mg/dL (<0.1-1.0)
[2019-11-29 03:02] LABS: BE 1.4 mmol/L (-2 to +3); PCO2 34.9 mmHg (35.0-45.0); PO2 83.6 mmHg (75.0-100.0); pH 7.475 (7.340-7.450)
[2019-11-29 07:02] LABS: ABSOLUTE LYMPHOCYTES 0.1 thou/uL (0.8-5.3); ABSOLUTE MONOCYTES 0.1 thou/uL (0.0-1.2); ABSOLUTE NEUTROPHILS 0.4 thou/uL (1.6-8.1); HYPOCHROMASIA 3+; PLATELET ESTIMATE DECREASED
[2019-11-29 07:03] LABS: MICROCYTES 2+
[2019-11-29 08:14] VITALS: BP 112/66
[2019-11-29 08:20] LABS: HEMATOCRIT 19.5 % (37.0-47.0); HEMOGLOBIN 6.8 gm/dL (12.0-15.0)
[2019-11-29 08:30] VITALS: BP 119/70
--- NOTE | 2019-11-29 11:06 | EKG ---
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 : 1955 Requested By: Hailee Ziegler Order Number: [id number] MD: Naresh Potts Measurements Intervals [place] Rate: 96 P: 72 MT: 115 QRS: 68 QRSD: 100 T: 55 QT: 346 QTc: 438 Interpretive Statements Sinus rhythm Borderline short [place] interval Compared to ECG 11/08/2019 17:48:10 Sinus tachycardia no longer present Electronically Signed On 11-29-2019 11:06:12 CDT by Naresh Potts [email or web address] <ELECTRONICALLY SIGNED> By: Naresh Potts MD, [facility] 11/29/19 1106 0328 0328 Naresh Potts MD, [facility] /EPI
[2019-11-29 12:47] VITALS: BP 105/60
[2019-11-29 16:20] VITALS: BP 113/65
[2019-11-29 20:00] VITALS: BP 123/65
[2019-11-30] VITALS: BP 107/73
[2019-11-30 00:35] LABS: URINE BILIRUBIN NEGATIVE (Negative); URINE BLOOD NEGATIVE (Negative); URINE CLARITY CLEAR; URINE COLOR YELLOW; URINE GLUCOSE-RANDOM NEGATIVE (Negative); URINE KETONES NEGATIVE (Negative); URINE LEUKOCYTES-REFLEX NEGATIVE (Negative); URINE NITRITE-REFLEX NEGATIVE (Negative); URINE PROTEIN NEGATIVE (Negative); URINE SPECIFIC GRAVITY 1.025 (1.005-1.030); URINE UROBILINOGEN 0.2 E.U./dl (0.2-1.0)
[2019-11-30 04:00] VITALS: BP 118/62
[2019-11-30 05:01] LABS: ABSOLUTE LYMPHOCYTES 0.1 thou/uL (0.8-5.3); ABSOLUTE MONOCYTES 0.7 thou/uL (0.0-1.2); ABSOLUTE NEUTROPHILS 1.2 thou/uL (1.6-8.1); BASOPHILS 0.4 %; HEMATOCRIT 21.7 % (37.0-47.0); HEMOGLOBIN 7.7 gm/dL (12.0-15.0); LYMPHOCYTES 6.9 %; MCH 31.5 pg (26.0-34.0); MCHC 35.2 g/dL (28.0-37.0); MCV 89.3 fL (80.0-100.0); MONOCYTES 35.4 %; MPV 7.6 fl. (7.2-11.1); NUCLEATED RBCS 0 /100WBC; PLATELET COUNT* 110 thou/uL (150-400); POLYS 57.3 %; RBC 2.43 mil/uL (4.20-5.00); RDW-CV 16.5 % (10.5-14.5); WBC 2.1 thou/uL (4.0-11.0)
[2019-11-30 05:35] LABS: CALCIUM 8.4 mg/dL (8.5-10.1); CREATININE 0.6 mg/dL (0.6-1.3); POTASSIUM 3.9 mmol/L (3.5-5.1)
[2019-11-30 07:30] VITALS: BP 146/87
[2019-11-30 12:44] VITALS: BP 111/58
[2019-11-30 20:00] VITALS: BP 114/63
[2019-12-01 00:30] VITALS: BP 121/73
[2019-12-01 04:30] VITALS: BP 106/53
[2019-12-01 08:30] VITALS: BP 144/81
[2019-12-01 11:00] LABS: ABSOLUTE LYMPHOCYTES 0.2 thou/uL (0.8-5.3); ABSOLUTE MONOCYTES 1.1 thou/uL (0.0-1.2); ABSOLUTE NEUTROPHILS 4.2 thou/uL (1.6-8.1); BASOPHILS 0.1 %; HEMATOCRIT 24.8 % (37.0-47.0); HEMOGLOBIN 8.5 gm/dL (12.0-15.0); LYMPHOCYTES 3.1 %; MCH 31.1 pg (26.0-34.0); MCHC 34.1 g/dL (28.0-37.0); MCV 91.3 fL (80.0-100.0); MONOCYTES 19.7 %; MPV 7.9 fl. (7.2-11.1); NUCLEATED RBCS 0 /100WBC; PLATELET COUNT* 138 thou/uL (150-400); POLYS 77.1 %; RBC 2.72 mil/uL (4.20-5.00); RDW-CV 16.7 % (10.5-14.5); WBC 5.5 thou/uL (4.0-11.0)
[2019-12-01 11:17] LABS: ALBUMIN 2.6 g/dL (3.4-5.0); CALCIUM 8.9 mg/dL (8.5-10.1); CREATININE 0.8 mg/dL (0.6-1.3); POTASSIUM 4.1 mmol/L (3.5-5.1); TOTAL BILIRUBIN 0.2 mg/dL (<0.1-1.0); TOTAL PROTEIN 6.3 g/dL (6.4-8.2)
[2019-12-01 13:31] VITALS: BP 115/58
[2019-12-01 16:00] VITALS: BP 117/59
[2019-12-02] VITALS: BP 117/69
[2019-12-02 04:00] VITALS: BP 138/83
[2019-12-02 05:13] LABS: ABSOLUTE LYMPHOCYTES 0.4 thou/uL (0.8-5.3); ABSOLUTE MONOCYTES 1.4 thou/uL (0.0-1.2); ABSOLUTE NEUTROPHILS 8.6 thou/uL (1.6-8.1); BASOPHILS 0.2 %; EOSINOPHILS 0.1 %; HEMATOCRIT 22.6 % (37.0-47.0); HEMOGLOBIN 7.7 gm/dL (12.0-15.0); LYMPHOCYTES 3.8 %; MCHC 34.2 g/dL (28.0-37.0); MCV 90.7 fL (80.0-100.0); MONOCYTES 13.5 %; MPV 7.5 fl. (7.2-11.1); NUCLEATED RBCS 0 /100WBC; PLATELET COUNT* 129 thou/uL (150-400); POLYS 82.4 %; RBC 2.49 mil/uL (4.20-5.00); RDW-CV 16.7 % (10.5-14.5); WBC 10.5 thou/uL (4.0-11.0)
[2019-12-02 05:41] LABS: ALBUMIN 2.4 g/dL (3.4-5.0); CALCIUM 8.7 mg/dL (8.5-10.1); CREATININE 0.8 mg/dL (0.6-1.3); POTASSIUM 3.6 mmol/L (3.5-5.1); TOTAL BILIRUBIN 0.1 mg/dL (<0.1-1.0); TOTAL PROTEIN 5.6 g/dL (6.4-8.2)
[2019-12-02 06:06] LABS: PREALBUMIN 14.7 mg/dL (18.0-35.7)
[2019-12-02 07:30] VITALS: BP 130/78
[2019-12-02] MEDS ORDERED: DILAUDID2 MG PO (09:56)
[2019-12-02] MEDS ORDERED: AUGMENTIN 875-1 EACH PO (10:00)
[2019-12-02] MEDS ORDERED: PROTONIX40 M2 PO (10:00)
[2019-12-02] MEDS ORDERED: PREDNISONE 10 M10 MG PO (10:00)
[2019-12-02 12:00] VITALS: BP 113/72
[2019-12-02 13:28] VITALS: BP 113/72
== END 2019-12-02 15:13 | disposition home or self-care (01) | DRG 808 ==
LOC: M.ERS 01:29 → M.2W 03:47 → M.TBA-ER 03:47 → M.2W 08:56
PROVIDERS: Emergency Medicine Emergency Medical Services; Personal Emergency Response Attendant; ADMIT Internal Medicine; ATTEND Internal Medicine
PROC: 30233N1 Transfusion of Nonautologous Red Blood Cells into Peripheral Vein, Percutaneous Approach (ICD-10-PCS; principal; 2019-11-29)
DX: D61.818 Other pancytopenia (principal); E43 Unspecified severe protein-calorie malnutrition; J18.9 Pneumonia, unspecified organism; C34.90 Malignant neoplasm of unspecified part of unspecified bronchus or lung; J96.10 Chronic respiratory failure, unspecified whether with hypoxia or hypercapnia; J44.0 Chronic obstructive pulmonary disease with (acute) lower respiratory infection; D61.810 Antineoplastic chemotherapy induced pancytopenia; I10 Essential (primary) hypertension; I48.91 Unspecified atrial fibrillation; D69.59 Other secondary thrombocytopenia; F17.210 Nicotine dependence, cigarettes, uncomplicated; T45.1X5A Adverse effect of antineoplastic and immunosuppressive drugs, initial encounter; Z85.118 Personal history of other malignant neoplasm of bronchus and lung; Y92.89 Other specified places as the place of occurrence of the external cause; Z79.899 Other long term (current) drug therapy; Z20.828 Contact with and (suspected) exposure to other viral communicable diseases

== ENCOUNTER 2019-12-18 15:12 | Inpatient (IN) | payer OTHER ==
[~2019-12-18] VITALS: Ht 162.6 cm; Wt 52.0 kg
[~2019-12-18 15:12] MED LIST changes: +DILAUDID2 MG PO; +PROTONIX40 M2 PO
[2019-12-18 15:13] VITALS: BP 76/44
[2019-12-18] MEDS ORDERED: CARBOPLATIN150 MG IV (16:18)
[2019-12-18 16:21] LABS: CALCIUM 8.5 mg/dL (8.5-10.1); CREATININE 0.8 mg/dL (0.6-1.3); POTASSIUM 3.7 mmol/L (3.5-5.1)
[2019-12-18 16:22] LABS: APTT 29.4 Seconds (25.0-31.3); INR 1.1; MCHC 33.4 g/dL (28.0-37.0); MCV 92.9 fL (80.0-100.0); NUCLEATED RBCS 0 /100WBC; PLATELET COUNT* 119 thou/uL (150-400); PROTIME 11.3 Seconds (9.20-11.50); RBC 2.07 mil/uL (4.20-5.00); RDW-CV 19.5 % (10.5-14.5); WBC 5.6 thou/uL (4.0-11.0)
[2019-12-18] MEDS ORDERED: TECENTRIQ IV (16:24)
[2019-12-18 16:28] LABS: HEMATOCRIT 19.3 % (37.0-47.0); HEMOGLOBIN 6.4 gm/dL (12.0-15.0)
[2019-12-18 16:32] LABS: ALBUMIN 2.7 g/dL (3.4-5.0); TOTAL BILIRUBIN 0.3 mg/dL (<0.1-1.0); TOTAL PROTEIN 5.9 g/dL (6.4-8.2)
[2019-12-18 18:07] LABS: URINE BILIRUBIN NEGATIVE (Negative); URINE BLOOD NEGATIVE (Negative); URINE CLARITY CLEAR; URINE COLOR YELLOW; URINE GLUCOSE-RANDOM NEGATIVE (Negative); URINE KETONES NEGATIVE (Negative); URINE LEUKOCYTES-REFLEX NEGATIVE (Negative); URINE NITRITE-REFLEX NEGATIVE (Negative); URINE PROTEIN NEGATIVE (Negative); URINE SPECIFIC GRAVITY 1.015 (1.005-1.030); URINE UROBILINOGEN 0.2 E.U./dl (0.2-1.0)
[2019-12-18 18:32] LABS: ABSOLUTE LYMPHOCYTES 0.4 thou/uL (0.8-5.3); ABSOLUTE MONOCYTES 0.8 thou/uL (0.0-1.2); ABSOLUTE NEUTROPHILS 4.4 thou/uL (1.6-8.1); ANISOCYTOSIS 1+; PLATELET ESTIMATE DECREASED
[2019-12-18 20:20] VITALS: BP 123/70
[2019-12-18 21:00] VITALS: BP 141/89
[2019-12-18 22:00] VITALS: BP 147/91
[2019-12-18 23:00] VITALS: BP 141/73
[2019-12-19] VITALS (16 sets, daily range): BP systolic 92–155; BP diastolic 55–90
[2019-12-19 00:22] LABS: HEMATOCRIT 22.7 % (37.0-47.0); HEMOGLOBIN 7.9 gm/dL (12.0-15.0)
[2019-12-19 05:48] LABS: ABSOLUTE BASOPHILS 0.1 thou/uL (0.0-0.2); ABSOLUTE LYMPHOCYTES 0.4 thou/uL (0.8-5.3); ABSOLUTE MONOCYTES 1.2 thou/uL (0.0-1.2); ABSOLUTE NEUTROPHILS 7.2 thou/uL (1.6-8.1); BASOPHILS 1.4 %; EOSINOPHILS 0.1 %; HEMATOCRIT 24.5 % (37.0-47.0); HEMOGLOBIN 8.4 gm/dL (12.0-15.0); MCH 30.6 pg (26.0-34.0); MCHC 34.2 g/dL (28.0-37.0); MCV 89.5 fL (80.0-100.0); MONOCYTES 13.8 %; MPV 7.4 fl. (7.2-11.1); NUCLEATED RBCS 0 /100WBC; PLATELET COUNT* 127 thou/uL (150-400); POLYS 79.7 %; RBC 2.74 mil/uL (4.20-5.00)
[2019-12-19 07:02] LABS: ALBUMIN 2.5 g/dL (3.4-5.0); CALCIUM 8.5 mg/dL (8.5-10.1); CREATININE 0.6 mg/dL (0.6-1.3); POTASSIUM 3.7 mmol/L (3.5-5.1); TOTAL BILIRUBIN 0.4 mg/dL (<0.1-1.0); TOTAL PROTEIN 5.7 g/dL (6.4-8.2)
[2019-12-20 04:16] VITALS: BP 123/67
[2019-12-20 06:07] LABS: ABSOLUTE LYMPHOCYTES 0.4 thou/uL (0.8-5.3); ABSOLUTE NEUTROPHILS 6.7 thou/uL (1.6-8.1); BASOPHILS 0.4 %; EOSINOPHILS 0.2 %; HEMATOCRIT 23.4 % (37.0-47.0); HEMOGLOBIN 7.9 gm/dL (12.0-15.0); LYMPHOCYTES 5.2 %; MCH 30.7 pg (26.0-34.0); MCHC 33.9 g/dL (28.0-37.0); MCV 90.5 fL (80.0-100.0); MONOCYTES 12.2 %; MPV 7.7 fl. (7.2-11.1); NUCLEATED RBCS 0 /100WBC; PLATELET COUNT* 125 thou/uL (150-400); RBC 2.58 mil/uL (4.20-5.00); WBC 8.2 thou/uL (4.0-11.0)
[2019-12-20 06:13] LABS: ALBUMIN 2.2 g/dL (3.4-5.0); CREATININE 0.6 mg/dL (0.6-1.3); POTASSIUM 3.5 mmol/L (3.5-5.1); TOTAL BILIRUBIN 0.2 mg/dL (<0.1-1.0); TOTAL PROTEIN 5.5 g/dL (6.4-8.2)
[2019-12-20 08:00] VITALS: BP 128/78
--- NOTE | 2019-12-20 10:23 | EKG ---
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
== END 2019-12-20 11:28 | disposition home or self-care (01) | DRG 811 ==
LOC: M.ERS 15:12 → M.TBA-ER 16:53 → M.ICU 20:07 → M.ORTHSURG 12-19 08:22
PROVIDERS: Emergency Medicine Emergency Medical Services; ADMIT Internal Medicine; ATTEND Internal Medicine
PROC: 30233N1 Transfusion of Nonautologous Red Blood Cells into Peripheral Vein, Percutaneous Approach (ICD-10-PCS; principal; 2019-12-18)
DX: D64.9 Anemia, unspecified (principal); E43 Unspecified severe protein-calorie malnutrition; C34.90 Malignant neoplasm of unspecified part of unspecified bronchus or lung; Z68.1 Body mass index [BMI] 19.9 or less, adult; D61.810 Antineoplastic chemotherapy induced pancytopenia; J44.9 Chronic obstructive pulmonary disease, unspecified; I10 Essential (primary) hypertension; D70.9 Neutropenia, unspecified; R50.81 Fever presenting with conditions classified elsewhere; T45.1X5A Adverse effect of antineoplastic and immunosuppressive drugs, initial encounter; Z20.828 Contact with and (suspected) exposure to other viral communicable diseases; Y92.89 Other specified places as the place of occurrence of the external cause; Z79.899 Other long term (current) drug therapy; Z79.82 Long term (current) use of aspirin; Z87.891 Personal history of nicotine dependence; Z28.21 Immunization not carried out because of patient refusal

== ENCOUNTER 2020-05-01 20:26 | Observation (INO) | payer BC ==
[~2020-05-01] VITALS: Ht 162.6 cm; Wt 48.1 kg
[~2020-05-01 20:26] MED LIST changes: +CARBOPLATIN150 MG IV; +TECENTRIQ IV
[2020-05-01 20:33] VITALS: BP 152/93
[2020-05-01 21:16] LABS: HEMATOCRIT 36.2 % (37.0-47.0); HEMOGLOBIN 12.1 gm/dL (12.0-15.0); MCHC 33.5 g/dL (28.0-37.0); MCV 89.4 fL (80.0-100.0); MPV 7.3 fl. (7.2-11.1); NUCLEATED RBCS 0 /100WBC; PLATELET COUNT* 213 thou/uL (150-400); RBC 4.05 mil/uL (4.20-5.00); RDW-CV 15.9 % (10.5-14.5); WBC 14.8 thou/uL (4.0-11.0)
[2020-05-01 21:22] LABS: BE 5.3 mmol/L (-2 to +3); PCO2 46.6 mmHg (35.0-45.0); PO2 74.4 mmHg (75.0-100.0); pH 7.433 (7.340-7.450)
[2020-05-01] MEDS ORDERED: CARAFATE1 GM/10 ML PO (21:24)
[2020-05-01] MEDS ORDERED: SYNTHROID100 MC1 PO (21:24)
[2020-05-01 21:25] LABS: CREATININE 0.6 mg/dL (0.6-1.3)
[2020-05-01] MEDS ORDERED: VENLAFAXINE HCL75 M1 PO (21:25)
[2020-05-01] MEDS ORDERED: GENTLE LAXATIVE10 MG (21:26)
[2020-05-01] MEDS ORDERED: IPRAT-ALBUT 0.5-3 ML (21:26)
[2020-05-01] MEDS ORDERED: ENTOCORT EC 3 MG3 MG PO (21:27)
[2020-05-01] MEDS ORDERED: DULCOLAX STOOL100 M1 PO (21:27)
[2020-05-01] MEDS ORDERED: ASPERCREME1 EACH TOP (21:28)
[2020-05-01] MEDS ORDERED: MAGNESIUM30 MG PO (21:29)
[2020-05-01] MEDS ORDERED: MORPHINE SULFAT30 M1 PO (21:29)
[2020-05-01] MEDS ORDERED: ZUPLENZ4 MG PO (21:30)
[2020-05-01 21:43] LABS: ALBUMIN 2.5 g/dL (3.4-5.0); MAGNESIUM 1.5 mg/dL (1.8-2.4); TOTAL BILIRUBIN 0.8 mg/dL (<0.1-1.0)
[2020-05-01 21:45] LABS: ABSOLUTE LYMPHOCYTES 0.9 thou/uL (0.8-5.3); ABSOLUTE MONOCYTES 0.4 thou/uL (0.0-1.2); ABSOLUTE NEUTROPHILS 13.5 thou/uL (1.6-8.1); PLATELET ESTIMATE ADEQUATE; TOXIC GRANULATION 1+
[2020-05-01 23:15] LABS: URINE BILIRUBIN NEGATIVE (Negative); URINE BLOOD NEGATIVE (Negative); URINE CLARITY CLEAR; URINE COLOR YELLOW; URINE GLUCOSE-RANDOM NEGATIVE (Negative); URINE KETONES NEGATIVE (Negative); URINE LEUKOCYTES-REFLEX NEGATIVE (Negative); URINE NITRITE-REFLEX NEGATIVE (Negative); URINE PROTEIN NEGATIVE (Negative); URINE UROBILINOGEN 0.2 E.U./dl (0.2-1.0)
[2020-05-01 23:46] LABS: APTT 26.2 Seconds (25.0-31.3); PROTIME 10.9 Seconds (9.20-11.50)
[2020-05-02] VITALS: BP 166/102
[2020-05-02 00:30] VITALS: BP 162/79
[2020-05-02 08:01] VITALS: BP 185/113
--- NOTE | 2020-05-02 14:00 | EKG ---
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: [place] : 1955 Requested By: Hailee Ziegler Order Number: [id number] Michelle MD: Naresh Potts Measurements Intervals [place] Rate: 98 P: 0 [place]: 72 QRS: 83 QRSD: 79 T: -58 QT: 450 QTc: 575 Interpretive Statements Sinus rhythm Short [place] interval Borderline right axis deviation Borderline low voltage, extremity leads Borderline ST depression, diffuse leads Prolonged QT interval Compared to ECG 12/18/2019 15:23:43 ST (T wave) deviation now present Prolonged QT interval now present Electronically Signed On 05-02-2020 14:00:16 RADIATION OFFICER by Naresh Potts [email or web address] <ELECTRONICALLY SIGNED> By: Naresh Potts MD, FACC 05/02/201399 35 35 Naresh Potts MD, [facility] /EPI
[2020-05-02 16:24] VITALS: BP 175/112
[2020-05-02 20:50] VITALS: BP 155/101
[2020-05-03] MEDS ORDERED: MS CONTIN15 MG PO ×2 (06:41→12:47)
[2020-05-03 07:15] VITALS: BP 167/104
[2020-05-03 12:00] VITALS: BP 167/104
[2020-05-03] MEDS ORDERED: ZUPLENZ4 MG PO (13:02)
[2020-05-03] MEDS ORDERED: LORAZEPAM 1 MG T1 MG PO (13:02)
[2020-05-03] MEDS ORDERED: ROXICODONE15 MG PO (13:13)
== END 2020-05-03 16:41 | disposition hospice, home (50) ==
LOC: M.ERS 20:26 → M.3W 23:30 → M.TBA-ER 23:30 → M.3W 05-02 00:14
PROVIDERS: Personal Emergency Response Attendant; ADMIT Internal Medicine; ATTEND Internal Medicine
DX: C34.90 Malignant neoplasm of unspecified part of unspecified bronchus or lung (principal); C78.7 Secondary malignant neoplasm of liver and intrahepatic bile duct; R10.9 Unspecified abdominal pain; M54.9 Dorsalgia, unspecified; E03.9 Hypothyroidism, unspecified; I10 Essential (primary) hypertension; E78.5 Hyperlipidemia, unspecified; E43 Unspecified severe protein-calorie malnutrition; R53.1 Weakness; Z79.82 Long term (current) use of aspirin; Z79.899 Other long term (current) drug therapy; Z20.828 Contact with and (suspected) exposure to other viral communicable diseases